=== PATIENT | male | born 2000 | race African-American/Black ===

== ENCOUNTER 2024-05-09 11:37 | Emergency (ER) | payer OTHER ==
[~2024-05-09] VITALS: Ht 172.7 cm; Wt 86.1 kg
[2024-05-09 11:43] VITALS: BP 126/76; TEMP 97.2; O2SAT 99
== END 2024-05-09 13:32 | disposition home or self-care (01) ==
LOC: M ED 11:37
DX: S86.002A Unspecified injury of left Achilles tendon, initial encounter (principal); Y92.9 Unspecified place or not applicable; Y93.67 Activity, basketball; Y99.9 Unspecified external cause status

== ENCOUNTER → 2024-05-19 | Day surgery (SDC) | payer OTHER ==
[~2024-05-19] VITALS: Ht 172.7 cm; Wt 90.0 kg
[~2024-05-19] MED LIST: ACET-897 PO; ACETAMINOPHEN 1000MG 100ML IV BAG As Ordered ONE; EPINEPHrine INJ 1 MG/ML 1ML AMP As Ordered ONE; HYDROMORPHONE HCL 0.5 MG/ 0.5 ML SYRINGE IV PRN; IBUP-1114 PO; KETOROLAC 60MG 2ML VIAL As Ordered ONE; LIDOCAINE 2% 100MG/5ML SDV (FOR ANES.) As Ordered ONE; LR 1,000 ML IV SCH; MIDAZOLAM INJ 2MG/2ML VIAL As Ordered ONE; NAPR-855 PO; ONDANSETRON 4MG 2ML VIAL As Ordered ONE; ONDANSETRON 4MG 2ML VIAL IV PRN; ROCURONIUM BROMIDE 50MG/5ML VIAL As Ordered ONE; SUGAMMADEX SODIUM 500 MG/5 ML VIAL (BRIDION) As Ordered ONE; TRANEXAMIC ACID 100 MG/ML 10ML VIAL IV ONE; ceFAZolin SOD 2 GM in IV 1 EA IV ONE; ePHEDrine SULFATE 25 MG/5 ML(5MG/ML) SYRINGE As Ordered ONE; fentaNYL 100 MCG/2 ML INJECTION As Ordered ONE; fentaNYL 100 MCG/2 ML INJECTION IV PRN; oxyCODONE 5MG TAB PO PRN; propofoL 200 MG/20 ML VIAL As Ordered ONE
[2024-05-19] MEDS: LR 1,000 ML IV SCH (12:35)
[2024-05-19] MEDS: dexAMETHasone 10MG/1ML VIAL PRES.FREE PN ONE (18:00)
[2024-05-19] MEDS: LIDOCAINE 1% SDV 5ML VIAL PN ONE (18:00)
[2024-05-19] MEDS: ROPIvacaine 0.5% 30ML VIAL PN ONE (18:00)
[2024-05-19] MEDS: fentaNYL 100 MCG/2 ML INJECTION IV PRN (18:09)
[2024-05-19] MEDS: MIDAZOLAM INJ 2MG/2ML VIAL IV PRN (18:09)
[2024-05-19] MEDS: EPINEPHrine INJ 1 MG/ML 1ML AMP PN ONE (18:30)
[2024-05-19] MEDS: ceFAZolin 2 GM/D5W 50 ML IV BAG As Ordered ONE (19:25)
[2024-05-19] MEDS: TRANEXAMIC ACID 100 MG/ML 10ML VIAL As Ordered ONE (20:00)
[2024-05-19] MEDS: VANCOMYCIN 500MG/10ML VIAL As Ordered ONE (21:46)
[2024-05-19 23:45] VITALS: BP 129/69; TEMP 97.8; O2SAT 100
== END | disposition home or self-care (01) ==
LOC: M SDC 11:53
PROVIDERS: ATTEND Orthopaedic Surgery
DX: S86.012A Strain of left Achilles tendon, initial encounter (principal); X50.0XXA Overexertion from strenuous movement or load, initial encounter; Y93.67 Activity, basketball; Y92.9 Unspecified place or not applicable
CPT/HCPCS: 27650; C1713; J0131; J0690; J1100; J1885; J2250; J2405; J3010; J3370

== ENCOUNTER → 2024-08-23 | Outpatient (REF) | payer OTHER ==
[~2024-08-23] MED LIST changes: -ACETAMINOPHEN 1000MG 100ML IV BAG As Ordered ONE; -EPINEPHrine INJ 1 MG/ML 1ML AMP As Ordered ONE; -HYDROMORPHONE HCL 0.5 MG/ 0.5 ML SYRINGE IV PRN; -KETOROLAC 60MG 2ML VIAL As Ordered ONE; -LIDOCAINE 2% 100MG/5ML SDV (FOR ANES.) As Ordered ONE; -LR 1,000 ML IV SCH; -MIDAZOLAM INJ 2MG/2ML VIAL As Ordered ONE; -ONDANSETRON 4MG 2ML VIAL As Ordered ONE; -ONDANSETRON 4MG 2ML VIAL IV PRN; -ROCURONIUM BROMIDE 50MG/5ML VIAL As Ordered ONE; -SUGAMMADEX SODIUM 500 MG/5 ML VIAL (BRIDION) As Ordered ONE; -TRANEXAMIC ACID 100 MG/ML 10ML VIAL IV ONE; -ceFAZolin SOD 2 GM in IV 1 EA IV ONE; -ePHEDrine SULFATE 25 MG/5 ML(5MG/ML) SYRINGE As Ordered ONE; -fentaNYL 100 MCG/2 ML INJECTION As Ordered ONE; -fentaNYL 100 MCG/2 ML INJECTION IV PRN; -oxyCODONE 5MG TAB PO PRN; -propofoL 200 MG/20 ML VIAL As Ordered ONE
[2024-08-23 12:57] LABS: SEMEN APPEARANCE OPAQUE (OPAQUE); SEMEN VISCOSITY LIQUID (LIQUID); SEMEN VOLUME 1.8 ml (2.0-5.0); SPERM CONCENTRATION 58.6 M/ml (>=15.0); TOTAL PROGRESSIVE SPERM 10.5 M/Ejac.; WBC CONCENTRATION <=1 M/ml (<=1 M/ml)
== END ==
LOC: M LAB REF 12:15
DX: N46.9 Male infertility, unspecified (principal)

== ENCOUNTER → 2024-08-30 | Outpatient (REF) | payer OTHER ==
[2024-08-30 09:38] LABS: SEMEN APPEARANCE OPAQUE (OPAQUE); SEMEN VISCOSITY VISCOUS (LIQUID); SEMEN VOLUME 1.8 ml (2.0-5.0); SPERM CONCENTRATION 10.8 M/ml (>=15.0); WBC CONCENTRATION >1 M/ml (<=1 M/ml)
[2024-08-30 09:39] LABS: TOTAL PROGRESSIVE SPERM 6.3 M/Ejac.
== END ==
LOC: M LAB REF 09:27
DX: N46.9 Male infertility, unspecified (principal)

== ENCOUNTER → 2024-09-07 | Outpatient (REF) | payer OTHER ==
[2024-09-07 14:11] LABS: SEMEN APPEARANCE OPAQUE (OPAQUE)
[2024-09-07 14:15] LABS: SEMEN VISCOSITY LIQUID (LIQUID); SPERM CONCENTRATION 63.2 M/ml (>=15.0); TOTAL PROGRESSIVE SPERM 20.7 M/Ejac.; WBC CONCENTRATION <=1 M/ml (<=1 M/ml)
== END ==
LOC: M LAB REF 13:15
DX: N46.9 Male infertility, unspecified (principal)

== ENCOUNTER 2025-05-12 06:48 | Emergency (ER) | payer OTHER ==
[~2025-05-12] VITALS: Ht 170.2 cm; Wt 83.5 kg
[2025-05-12 07:25] LABS: KETONE, URINE AUTO RFX NEGATIVE (NEGATIVE); LEUKOCYTE ESTERASE UR AUTO RFX NEGATIVE (NEGATIVE); NITRITE, URINE AUTO RFX NEGATIVE (NEGATIVE); RBC, URINE AUTO RFX 0 /HPF (0-3); SQUAM EPITHELIAL CELL UR AURFX 0 /HPF (0-6); WBC, URINE AUTO RFX 2 /HPF (0-3)
[2025-05-12 07:59] VITALS: BP 117/73; TEMP 97.4; O2SAT 100
[2025-05-12] MEDS: DOXYCYCLINE HYCLATE 100 MG TABLET PO ONE (08:10)
[2025-05-12] MEDS ORDERED: DOXY-441 PO (08:15)
[2025-05-12 08:56] LABS: Trichomonas vaginalis (AMP) NOT DETECTED (NEGATIVE)
[2025-05-12 09:20] LABS: GC DNA AMPLIFICATION NEGATIVE (NEGATIVE)
== END 2025-05-12 08:28 | disposition home or self-care (01) ==
LOC: M ED 06:48
DX: Z11.3 Encounter for screening for infections with a predominantly sexual mode of transmission (principal); Z79.1 Long term (current) use of non-steroidal anti-inflammatories (NSAID); Z79.2 Long term (current) use of antibiotics; Z79.899 Other long term (current) drug therapy